=== PATIENT | male | born 2000 ===

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

== ENCOUNTER 2022-05-29 12:25 | Emergency (ER) | payer BC, MEDICAID, SELFPAY ==
[2022-05-29 12:33] VITALS: BP 107/66; PULSE 79; RESP 16; TEMP 36.7; O2SAT 99; BMI 20.7
--- NOTE | 2022-05-29 12:46 | W.ED.DENTAL ---
HPI - Dental/Oral General: Chief complaint: Dental/Oral Stated complaint: toothache Time Seen by Provider: 05/29/22 12:39 History of Present Illness: Patient is in today for dental pain. He reports that a couple of months ago a tooth on his left upper jaw broke and since that time it has been very sensitive to any extreme temperature of food or chewing. Patient has not been to a dentist about this but does have an appointment for an emergency extraction he reports tomorrow. He denies any fever or chills. He came in today just hoping for temporary relief Review of Systems Const: Denies: chills or body aches ENMT: Reports: dental pain Card: Denies: chest pain or palpitations Resp: Denies: dyspnea, productive cough or non-productive cough GI: Denies: abdominal pain, nausea or vomiting : Denies: flank pain, difficulty urinating or dysuria PFS ED PFSH: Medical History Psychiatric care Family History Other CAD (coronary artery disease) Cancer Diabetes Hypertension Stroke Social History Smoking and tobacco status: current every day smoker Second hand smoke exposure: Yes Alcohol intake: never Adopted: No Highest education level completed: 10th Grade Physical Exam Const: COMMON NORMALS: no acute distress, patient oriented x3 and alert HENMT: TEETH & GINGIVA IMAGES: 1. Broken to the gumline surrounding gingival erythema 2. Dental caries surrounding gingival erythema OTHER: Poor dentition with numerous dental caries. Generalized gingival erythema to the left upper jaw with broken teeth. No definitive drainable abscess appreciated. Neck/C-Spine: COMMON NORMALS: no JVD Resp: COMMON NORMALS: normal respiratory effort, No use of accessory muscles and clear to auscultation bilaterally AUSCULTATION: clear to auscultation bilaterally Cardio: COMMON NORMALS: no JVD, regular rate, regular rhythm, S1 normal heart sound present and S2 normal heart sound present RATE: regular rate RHYTHM: regular rhythm HEART SOUNDS: S1 normal heart sound present and S2 normal heart sound present Neuro: COMMON NORMALS: patient oriented x3, moves all extremities and no focal motor deficits SENSORIUM/ORIENTATION: Yes alert Course Vital Signs: Vital signs: Vital Signs Temperature 98.0 F 05/29/22 12:33 Pulse Rate 79 05/29/22 12:33 Respiratory Rate 16 05/29/22 12:33 Blood Pressure 107/66 05/29/22 12:33 Pulse Oximetry 99 05/29/22 12:33 Oxygen Delivery Me thod 05/29/22 12:33 MDM - Dental/Oral Medical Decision Making Differentials include dental pain, dental infection, dental abscess We will treat patient for dental infection to cover for early developing abscess given the poor dentition and the broken tooth. Start patient on penicillin/amoxicillin antibiotic twice daily for 10 days. Encourage patient to keep emergent follow-up with dental tomorrow. Advised patient to take ibuprofen and Tylenol as needed for pain. Return to ER as needed for new or worsening symptoms Discharge Plan Discharge Patient Disposition: Home Clinical Impression: Dental infection, Tooth pain Condition: Stable Prescriptions: New amoxicillin 875 mg tablet 875 mg PO BID 10 Days Qty: 20 0RF Rx Instructions: Start tonight 05/29/2022 No Action sleeping aid PO PRN clonidine HCl 0.1 mg tablet 0.1 mg PO .COMPLEX Qty: 60 0RF Rx Instructions: 0.1 mg PO q evening; may increase to 2 tabs q evening after 3 or more days; Discharge Orders: Discharge ED (Routine); Ordered 05/29/22 Ordered By: Julianne Ortiz Discharge Diet: Advance as tolerated Discharge Activity: Resume usual activity Patient Instructions: Toothache (ED) Activity Restrictions/Additional Instructions: Take antibiotics as directed. Your first dose was given in ER today you may start your prescription at home late this evening. Alternate Tylenol and Motrin as needed for pain. Keep your follow-up with dental tomorrow as already scheduled. Return to the ER as needed for new or worsening symptoms Stand Alone Forms: Work/School Release Coding Level of Care Code ED Electrical Maintenance Supervisor for Danilo Neumann
== END 2022-05-29 13:13 | disposition home or self-care (01) ==
PROVIDERS: Emergency Provider Nurse Practitioner Family
DX: K04.7 Periapical abscess without sinus (principal); F17.210 Nicotine dependence, cigarettes, uncomplicated
CPT/HCPCS: 99283

== ENCOUNTER 2022-10-05 10:17 | Emergency (ER) | payer BC, MEDICAID, SELFPAY ==
[2022-10-05 10:31] VITALS: BP 120/78; PULSE 70; RESP 15; TEMP 36.8; O2SAT 98; BMI 20.6
--- NOTE | 2022-10-05 11:10 | ED_ITS ---
HPI - Dental/Oral General: Chief complaint: Dental/Oral Stated complaint: upper left toothache Time Seen by Provider: 10/05/22 10:37 Source: patient Mode of arrival: ambulatory Limitations: no limitations History of Present Illness: Patient presents to the emergency department today for evaluation treatment of left posterior, lower molar pain. Patient admits to issues with his teeth in the past but never this significant. He denies headache or ear pain. He notes onset of pain today without any known prior dental trauma. He admits he took a [place] from a friend this morning. Patient indicates he has had to go to the dental walk-in clinic in [place] in the past for dental care. Review of Systems General: Reports: 10 or more systems reviewed and unremarkable except in HPI and below PFSH ED PFSH: Medical History Psychiatric care Family History Other CAD (coronary artery disease) Cancer Diabetes Hypertension Stroke Social History Smoking and tobacco status: current every day smoker Second hand smoke exposure: Yes Alcohol intake: never Substance/Drug Use: never Adopted: No Highest education level completed: 10th Grade Physical Exam Const: COMMON NORMALS: no acute distress, patient oriented x3 and alert HENMT: OTHER: Mucous membranes are moist. Patient with multiple broken teeth noted to both the upper and lower jaw aligns bilaterally. Patient does have erythematous gumline in the area of his discomfort but no signs of active draining or active abscess. Patient nontender along the left mandible on palpation. No sig nificant swelling of the glands. Eye: COMMON NORMALS: Equal, round and reactive pupils present, EOMs intact bilaterally and conjunctivae normal CONJUNCTIVA: Yes conjunctivae normal PUPIL: Yes Equal, round and reactive pupils present Neck/C-Spine: COMMON NORMALS: no JVD Lymph: LYMPHATIC: no lymphadenopathy noted Resp: COMMON NORMALS: normal respiratory effort, No retractions and No use of accessory muscles Cardio: COMMON NORMALS: no JVD and regular rate RATE: regular rate : COMMON NORMALS: Yes no CVA tenderness BLADDER/KIDNEY EXAM: Yes no CVA tenderness Back/Pelvis: COMMON NORMALS: no CVA tenderness, thoracic and lumbar spine normal to inspection and thoraco-lumbar ROM normal Extremity: COMMON NORMALS: normal to inspection, full ROM and no pedal edema Neuro: COMMON NORMALS: patient oriented x3 SENSORIUM/ORIENTATION: Yes alert Skin: COMMON NORMALS: no rashes or lesions noted and turgor normal GENERAL SKIN EXAM: no rashes or lesions noted and turgor normal Course Vital Signs: Vital signs: Vital Signs Temperature 98.2 F 10/05/22 10:31 Pulse Rate 70 10/05/22 10:31 Respiratory Rate 15 10/05/22 10:31 Blood Pressure 120/78 10/05/22 10:31 Pulse Oximetry 98 10/05/22 10:31 Oxygen Delivery Me thod Room Air 10/05/22 10:31 MDM - Dental/Oral Medical Decision Making Patient has multiple broken teeth on examination. Patient does have a broken tooth in the area of his discomfort which is most likely causing nerve root exposure given the description of a shooting pain he gives. I do not appreciate any signs of a large abscess but, as he does not have a dentist and may take several days to get in for dental care, will provide him a short course of antibiotics to make sure dental infection does not develop. Also provided him viscous lidocaine and ibuprofen 800 mg tablets to help with his pain. We dis cussed purchasing an [id number] dental putty to help cover the exposed nerve and multiple dental resources in the area were provided to him to contact and have follow-up within the next couple of days. Differential Diagnosis Likely dental caries, toothache and fracture of tooth Discharge Plan Discharge Patient Disposition: Home Clinical Impression: Fracture of tooth, Dental caries, Toothache Condition: Stable Prescriptions: New amoxicillin-pot clavulanate 875-125 mg tablet 1 tab PO BID 10 Days Qty: 20 0RF Lidocaine Viscous 2 % solution 1 applic mucous membrane Q8H PRN (Reason: pain) Qty: 100 0RF ibuprofen 800 mg tablet 800 mg PO Q8H PRN (Reason: pain) Qty: 21 0RF No Action sleeping aid PO PRN clonidine HCl 0.1 mg tablet 0.1 mg PO .COMPLEX Qty: 60 0RF Rx Instructions: 0.1 mg PO q evening; may increase to 2 tabs q evening after 3 or more days; Discharge Orders: Discharge ED (Routine); Ordered 06/25/23 Ordered By: My Stanley Discharge Diet: Usual diet Discharge Activity: Increase activity as tolerated Patient Instructions: Toothache (ED), Mouth Care (ED) Activity Restrictions/Additional Instructions: Unfortunately, in the area where you are experiencing pain it does appear the of a molar that is cracked in half. Inspection of your other teeth show that you have several other very similar which could also result in issues with recurrent dental pain. I highly encourage you to see a dentist to address these complaints further as it does require dental intervention for full resolution of dental pain and concerns for potential reoccurrence. I am providing you some numbing medication to help with your dental pain. Also providing you anti- inflammatory medication and, as you are at a risk of infection due to the exposure of the dental roots and deeper gum, and also starting you on some antibiotics for dental infection. Coding Level of Care Code ED Nursing Department Chairperson for Danilo Neumann
== END 2022-10-05 11:19 | disposition home or self-care (01) ==
PROVIDERS: Emergency Provider Physician Assistant
DX: S02.5XXA Fracture of tooth (traumatic), initial encounter for closed fracture (principal); K02.9 Dental caries, unspecified; F17.210 Nicotine dependence, cigarettes, uncomplicated; X58.XXXA Exposure to other specified factors, initial encounter
CPT/HCPCS: 99284